=== PATIENT | female | born 1995 | race Native Hawaiian/Other Pacific Islander ===

== ENCOUNTER 2017-10-09 15:41 | Emergency (ER) | payer MEDICAID ==
[~2017-10-09] VITALS: Ht 162.6 cm; Wt 61.2 kg
[2017-10-09] MEDS ORDERED: IBUP600 PO (17:10)
== END 2017-10-09 17:52 | disposition home or self-care (01) ==
LOC: ER 15:41
DX: S83.92XA Sprain of unspecified site of left knee, initial encounter (principal); W22.8XXA Striking against or struck by other objects, initial encounter
CPT/HCPCS: 73562-LT; 99283-25

== ENCOUNTER 2017-10-13 15:08 | Emergency (ER) | payer OTHER, MEDICAID ==
[~2017-10-13] VITALS: Ht 162.6 cm; Wt 63.5 kg
[~2017-10-13 15:08] MED LIST: IBUP600 PO
[2017-10-13] MEDS ORDERED: KETO10 PO (15:29)
== END 2017-10-13 15:41 | disposition home or self-care (01) ==
LOC: ER 15:08
DX: M25.562 Pain in left knee (principal)
CPT/HCPCS: 99282

== ENCOUNTER → 2019-12-29 | Outpatient (CLI) | payer OTHER ==
[~2019-12-29] MED LIST changes: +Bactrim Ds Tab1 EACH PO; +KETO10 PO
[2019-12-31 18:03] LABS: CORONAVIRUS (COVID19) CSH-NRL Positive (Negative)
== END ==
LOC: LAB SHORT 17:31 → LAB 17:31
PROVIDERS: Family Medicine
DX: U07.1 COVID-19 (principal)
CPT/HCPCS: U0003